=== PATIENT | female | born 1950 | race Caucasian/White ===

== ENCOUNTER 2019-06-18 16:39 | Emergency (ER) | payer MEDICARE ==
[~2019-06-18] VITALS: Ht 152.4 cm; Wt 77.0 kg
--- NOTE | 2019-06-18 17:36 | NUR ---
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
--- NOTE | 2019-06-18 19:23 | NUR ---
PT BACK FROM US
[2019-06-18 19:24] VITALS: BP 119/63
--- NOTE | 2019-06-18 19:25 | NUR ---
PT RESTING ON GURNEY. LOUIE. CONNECTED TO ALL MONITORING.
== END 2019-06-18 20:23 | disposition home or self-care (01) ==
LOC: ED 19:50
DX: M79.651 Pain in right thigh (principal); Z87.891 Personal history of nicotine dependence; Z86.73 Personal history of transient ischemic attack (TIA), and cerebral infarction without residual deficits
CPT/HCPCS: 99284